=== PATIENT | male | born 1965 | race Caucasian/White ===

== ENCOUNTER 2017-04-23 11:19 | Day surgery (SDC) | payer BC ==
[~2017-04-23] VITALS: Ht 172.7 cm; Wt 88.5 kg
--- NOTE | ~2017-04-23 | EGD ---
EGD REPORT [facility] [address] [id number] NAME: JARRETT MOONEY : 65 [place] : [facility] [place] [id number] AGE: 52 ADM/REG DATE : 04/23/17 MR#: [id number] REPORT SERV DATE: 04/23/17 DICTATED BY: JONI MEJIA DATE: 04/23/17 REPORT STATUS : Draft TRANSCRIBED BY: [facility] DATE: 04/23/17 [facility] Center Patient Name: Jarrett Mooney Date of : 1965 Attending MD: JONI MEJIA MD Procedure Date No Time: 04/23/2017 Procedure: Colonoscopy Indications: Screening for colorectal malignant neoplasm Referring MD: Laya AMOS Medicines: Propofol per Anesthesia Complications: No immediate complications. Estimated blood loss: None. Procedure: Pre-Anesthesia Assessment: - After reviewing the risks and benefits, the patient was deemed in satisfactory condition to undergo the procedure. - Prior to the procedure, a History and Physical was performed, and patient medications and allergies were reviewed. The patient's tolerance of previous anesthesia was also reviewed. The risks and benefits of the procedure and the sedation options and risks were discussed with the patient. All questions were answered, and informed consent was obtained. Prior Anticoagulants: The patient has taken no previous anticoagulant or antiplatelet agents. ASA Grade Assessment: II - A patient with mild systemic disease. After reviewing the risks and benefits, the patient was deemed in satisfactory condition to undergo the procedure. After I obtained informed consent, the scope was passed under direct vision. Throughout the procedure, the patient's blood pressure, pulse, and oxygen saturations were monitored continuously. The CF [id number] was introduced through the anus and advanced to the cecum, identified by appendiceal orifice and ileocecal valve. The colonoscopy was performed without difficulty. The ileocecal valve and appendiceal orifice were photographed. The patient tolerated the procedure well. The quality of the bowel preparation was good. The bowel preparation used was polyethylene glycol (PEG). Scope withdrawal time was greater than 12 minutes. Findings: The perianal and digital rectal examinations were normal. Pertinent negatives include normal sphincter tone. Non-bleeding internal hemorrhoids were found during retroflexion and were small and Grade I (internal hemorrhoids that do not prolapse). EGD REPORT [place] [id number] [facility] [place]. [address] NAME: JARRETT MOONEY : [birth year] [place] [facility] [place] PAT#: [id number] AGE: 52 ADM/REG DATE : 04/23/17 MR#: [id number] REPORT SERV DATE: 04/23/17 DICTATED BY: JONI MEJIA DATE: 04/23/17 REPORT STATUS : Draft TRANSCRIBED BY: [place] [facility] DATE: 04/23/17 A few small-mouthed diverticula were found in the sigmoid colon. A sessile polyp was found in the descending colon. The polyp was 5 mm in size. The polyp was removed with a cold snare. Resection and retrieval were complete. Estimated blood loss: none. A semi-sessile polyp was found in the sigmoid colon. The polyp was 7 mm in size. The polyp was removed with a hot snare. Resection and retrieval were complete. Estimated blood loss: none. The exam was otherwise without abnormality. Impression: - Non-bleeding internal hemorrhoids. - Mild diverticulosis in the sigmoid colon. - One 5 mm polyp in the descending colon. Resected and retrieved. - One 7 mm polyp in the sigmoid colon. Resected and retrieved. - The examination was otherwise normal. Recommendation: - Discharge patient to home (ambulatory). - High fiber diet indefinitely. - Continue present medications. - Await pathology results. - Repeat colonoscopy in 5 years for surveillance. - Patient has a contact number available for emergencies. The signs and symptoms of potential delayed complications were discussed with the patient. Return to normal activities tomorrow. Written discharge instructions were provided to the patient. Procedure Code(s): --- Professional --- 42541, Colonoscopy, flexible, proximal to splenic flexure; with removal of tumor(s), polyp(s), or other lesion(s) by snare technique Diagnosis Code(s): --- Professional --- K64.0, First degree hemorrhoids K57.30, Diverticulosis of large intestine without perforation or abscess without bleeding D12.5, Benign neoplasm of sigmoid colon D12.4, Benign neoplasm of descending colon Z12.11, Encounter for screening for malignant neoplasm of colon CPT copyright 2013 [employer]. All rights reserved. The codes documented in this report are preliminary and upon applications processor review may be revised to meet current compliance requirements. EGD REPORT [facility] [address] [place] [id number] NAME: JARRETT MOONEY : 65 [place] [facility] [place]#: [id number] AGE: 52 ADM/REG DATE : 04/23/17 MR#: [id number] REPORT SERV DATE: 04/23/17 DICTATED BY: JONI MEJIA DATE: 04/23/17 REPORT STATUS : Draft TRANSCRIBED BY: [employer] DATE: 04/23/17 JONI MEJIA MD 04/23/2017 2:09 PM This report has been signed electronically. Number of Addenda: 0 Note Initiated On: 04/23/2017 1:30 PM Scope Withdrawal Time 0 hours 13 minutes 36 seconds [id number] [place] [address]
[~2017-04-23 11:19] MED LIST: ASAB PO; BENICAR20 PO; ZYRTEC ALLGY10 MG PO
== END 2017-04-23 23:59 | disposition home or self-care (01) ==
LOC: DMU 11:19
PROVIDERS: Internal Medicine Gastroenterology
PROC: 0DBN8ZX Excision of Sigmoid Colon, Via Natural or Artificial Opening Endoscopic, Diagnostic (ICD-10-PCS; 2017-04-23)
PROC: 0DBM8ZX Excision of Descending Colon, Via Natural or Artificial Opening Endoscopic, Diagnostic (ICD-10-PCS; principal; 2017-04-23 13:00)
DX: Z12.11 Encounter for screening for malignant neoplasm of colon (principal); D12.4 Benign neoplasm of descending colon; D12.5 Benign neoplasm of sigmoid colon; K57.30 Diverticulosis of large intestine without perforation or abscess without bleeding; K64.0 First degree hemorrhoids; I10 Essential (primary) hypertension; Z79.82 Long term (current) use of aspirin; Z79.899 Other long term (current) drug therapy; Z98.890 Other specified postprocedural states
CPT/HCPCS: 88305